=== PATIENT | female | born 1980 | race Caucasian/White ===

== ENCOUNTER 2016-08-27 14:06 | Inpatient (IN) | payer OTHER ==
[~2016-08-27] VITALS: Ht 167.6 cm; Wt 75.3 kg
[~2016-08-27 14:06] MED LIST: ALBUTEROL0.09 MG/A2 INH; AUGMENTIN 500 M1 TAB PO; AUGMENTIN 875 M1 TAB PO; BACTRIM DS 8001 TA1 PO; BIAXIN500 MG PO; CLARITIN10 MG PO; COMBIVENT1 ARO IH; FLEXERIL10 MG PO; KEFLEX500 MG PO; KEPPRA500 MG PO; MEDROL DOSEPAK4 MG PO; METHADONE40 MG PO; MOTRIN800 MG PO; NEURONTIN600 MG PO; NEURONTIN800 MG PO; NORCO 325 MG-51 TAB PO; PEN-V500 MG PO; PERIDEX 480 ML480 ML PO; PROAIR HFA0.09 MG/AC IH; PROVENTIL0.09 MG/AC IH; PYRIDIUM200 M1 PO; ROBITUSSIN AC 110 ML PO; TESSALON PERLE200 MG PO; TRAMADOL HCL50 MG PO; ZITHROMAX Z PA250 MG PO; [UNRECOGNIZED DRUG - OTHER] PO
[2016-08-27 14:43] VITALS: BP 120/86
[2016-08-27 15:05] LABS: BILIRUBIN 1+ (NEGATIVE); BLOOD 3+ (NEGATIVE); CLARITY SL CLOUDY (CLEAR); COLOR YELLOW (YELLOW); GLUCOSE NEGATIVE (NEGATIVE); KETONE 3+ (NEGATIVE); LEUKO ESTERASE NEGATIVE (NEGATIVE); NITRITE NEGATIVE (NEGATIVE); PH 7.5 (5.0-9.0); PROTEIN 1+ (NEGATIVE); SPECIFIC GRAVITY 1.015 (1.005-1.030)
[2016-08-27 15:11] LABS: BACTERIA TRACE; MUCOUS 1+; RBC 31-40 rbc/hpf (0-2); WBC 0-2 wbc/hpf (0-5)
[2016-08-27 15:12] LABS: URINE REFLEX COMMENT YES (NO)
[2016-08-27 15:33] LABS: BASO % 0.3 % (0.0-1.0); EOS % 0.1 % (1.0-4.0); HEMATOCRIT 46.4 % (37.0-47.0); HEMOGLOBIN 16.2 g/dl (12.0-16.0); LYMPH # 0.9 10*3/uL (1.3-4.4); LYMPH % 9.3 % (27.0-41.0); MEAN CELL VOLUME 95.7 fl (81.0-99.0); MEAN CORPUSCULAR HGB 33.4 pg (27.0-31.0); MEAN CORPUSCULAR HGB CONC 34.9 g/dl (33.0-37.0); MEAN PLATELET VOLUME 9.5 fl (9.6-12.3); MONO # 0.4 10*3/uL (0.1-1.0); MONO % 4.1 % (3.0-9.0); NEUT # 8.6 10*3/uL (2.3-7.9); NEUT % 85.9 % (47.0-73.0); PLATELET COUNT AUTOMATED 252 10*3/uL (130-400); RED BLOOD COUNT 4.85 10*6/uL (4.10-5.10); RED CELL DISTRI WIDTH 14.2 % (0-14.5)
[2016-08-27 15:49] LABS: ALBUMIN 4.2 gm/dl (3.1-4.5); ALKALINE PHOSPHATASE 65 U/L (45-117); BUN 8 mg/dl (7-24); CARBON DIOXIDE 28 mmol/L (21-32); CHLORIDE 98 mmol/L (98-107); EST GLOM FILT AFRICAN AMERICAN > 60 ml/min; GLUCOSE 138 mg/dL (65-99); POTASSIUM 3.6 mmol/L (3.5-5.1); SGOT/AST 118 IU/L (3-35); SGPT/ALT 163 U/L (12-78); SODIUM 136 mmol/L (136-145); TOTAL PROTEIN 8.2 gm/dL (6.4-8.2)
[2016-08-27 16:00] VITALS: BP 120/78
[2016-08-27] MEDS ORDERED: METHADONE HCL40 M2 PO (18:57)
[2016-08-27 20:00] VITALS: BP 124/74
[2016-08-28] VITALS: BP 137/75
[2016-08-28 06:15] LABS: BASO % 0.2 % (0.0-1.0); EOS # 0.1 10*3/uL (0.0-0.4); EOS % 1.2 % (1.0-4.0); HEMATOCRIT 41.7 % (37.0-47.0); HEMOGLOBIN 14.5 g/dl (12.0-16.0); LYMPH # 1.7 10*3/uL (1.3-4.4); LYMPH % 20.5 % (27.0-41.0); MEAN CELL VOLUME 98.3 fl (81.0-99.0); MEAN CORPUSCULAR HGB 34.2 pg (27.0-31.0); MEAN CORPUSCULAR HGB CONC 34.8 g/dl (33.0-37.0); MEAN PLATELET VOLUME 9.4 fl (9.6-12.3); MONO # 0.6 10*3/uL (0.1-1.0); MONO % 6.6 % (3.0-9.0); NEUT % 71.1 % (47.0-73.0); PLATELET COUNT AUTOMATED 216 10*3/uL (130-400); RED BLOOD COUNT 4.24 10*6/uL (4.10-5.10); RED CELL DISTRI WIDTH 14.4 % (0-14.5); WHITE BLOOD COUNT 8.4 10*3/uL (4.8-10.8)
[2016-08-28 06:35] LABS: HEMOGLOBIN A1c 5.8 % (4.8-5.6)
[2016-08-28 06:51] LABS: ALBUMIN 3.4 gm/dl (3.1-4.5); ALKALINE PHOSPHATASE 52 U/L (45-117); BILIRUBIN, TOTAL 0.7 mg/dl (0.2-1.0); BUN 6 mg/dl (7-24); CARBON DIOXIDE 30 mmol/L (21-32); CHLORIDE 103 mmol/L (98-107); CHOLESTEROL 221 mg/dL (<200); EST GLOM FILT AFRICAN AMERICAN > 60 ml/min; FREE T4 0.82 ng/dl (0.76-1.46); GLUCOSE 107 mg/dL (65-99); HDL CHOLESTEROL 43 mg/dl (40-60); LDL CHOLESTEROL 140 mg/dL (9-159); MAGNESIUM 1.9 mg/dL (1.5-2.1); PHOSPHOROUS 2.7 mg/dL (2.5-4.9); POTASSIUM 3.1 mmol/L (3.5-5.1); SGOT/AST 52 IU/L (3-35); SGPT/ALT 103 U/L (12-78); SODIUM 142 mmol/L (136-145); TOTAL PROTEIN 6.7 gm/dL (6.4-8.2); TRIGLYCERIDES 192 mg/dl (<150); VLDL CHOLESTEROL 38 mg/dL (6-40)
[2016-08-28 06:59] LABS: INTERNATIONAL NORM RATIO 1.1 (2.0-3.5); PROTHROMBIN TIME 11.4 SECONDS (9.0-12.4)
[2016-08-28 07:00] LABS: VITAMIN D, 25-HYDROXY 8.1 ng/mL (30-100)
[2016-08-28 07:01] LABS: FOLIC ACID 7.15 ng/mL (>5.38)
[2016-08-28 08:00] VITALS: BP 116/66
[2016-08-28 12:00] VITALS: BP 124/67
[2016-08-28 16:00] VITALS: BP 124/68
[2016-08-28 20:00] VITALS: BP 128/78
[2016-08-29 00:04] VITALS: BP 116/65
[2016-08-29 06:32] LABS: BASO % 0.4 % (0.0-1.0); EOS # 0.2 10*3/uL (0.0-0.4); HEMATOCRIT 39.4 % (37.0-47.0); HEMOGLOBIN 13.4 g/dl (12.0-16.0); LYMPH % 28.1 % (27.0-41.0); MEAN CELL VOLUME 100.8 fl (81.0-99.0); MEAN CORPUSCULAR HGB 34.3 pg (27.0-31.0); MEAN PLATELET VOLUME 9.6 fl (9.6-12.3); MONO # 0.6 10*3/uL (0.1-1.0); MONO % 7.6 % (3.0-9.0); NEUT # 4.4 10*3/uL (2.3-7.9); NEUT % 60.5 % (47.0-73.0); PLATELET COUNT AUTOMATED 206 10*3/uL (130-400); RED BLOOD COUNT 3.91 10*6/uL (4.10-5.10); RED CELL DISTRI WIDTH 14.6 % (0-14.5); WHITE BLOOD COUNT 7.3 10*3/uL (4.8-10.8)
[2016-08-29 06:52] LABS: ALBUMIN 3.2 gm/dl (3.1-4.5); ALKALINE PHOSPHATASE 54 U/L (45-117); BILIRUBIN, TOTAL 0.7 mg/dl (0.2-1.0); BUN 4 mg/dl (7-24); CARBON DIOXIDE 25 mmol/L (21-32); CHLORIDE 108 mmol/L (98-107); EST GLOM FILT AFRICAN AMERICAN > 60 ml/min; GLUCOSE 101 mg/dL (65-99); MAGNESIUM 1.9 mg/dL (1.5-2.1); PHOSPHOROUS 2.6 mg/dL (2.5-4.9); POTASSIUM 3.6 mmol/L (3.5-5.1); SGOT/AST 39 IU/L (3-35); SGPT/ALT 77 U/L (12-78); SODIUM 140 mmol/L (136-145); TOTAL PROTEIN 6.4 gm/dL (6.4-8.2)
[2016-08-29 08:00] VITALS: BP 120/78
[2016-08-29 12:00] VITALS: BP 106/77
[2016-08-29 16:00] VITALS: BP 108/56
[2016-08-29 20:00] VITALS: BP 125/82
[2016-08-30] VITALS: BP 108/67
[2016-08-30 06:41] LABS: BUN 3 mg/dl (7-24); CARBON DIOXIDE 25 mmol/L (21-32); CHLORIDE 110 mmol/L (98-107); EST GLOM FILT AFRICAN AMERICAN > 60 ml/min; GLUCOSE 110 mg/dL (65-99); POTASSIUM 3.3 mmol/L (3.5-5.1); SODIUM 143 mmol/L (136-145)
[2016-08-30 08:00] VITALS: BP 118/84
[2016-08-30 12:00] VITALS: BP 124/84
[2016-08-30 16:00] VITALS: BP 128/76
[2016-08-30 20:00] VITALS: BP 144/93
[2016-08-31] VITALS: BP 120/65
[2016-08-31 06:44] LABS: BASO # 0.1 10*3/uL (0.0-0.1); BASO % 0.7 % (0.0-1.0); EOS # 0.2 10*3/uL (0.0-0.4); EOS % 2.9 % (1.0-4.0); HEMATOCRIT 38.7 % (37.0-47.0); HEMOGLOBIN 13.3 g/dl (12.0-16.0); IG # 0.1 10*3/uL (0.0-0.1); LYMPH # 1.9 10*3/uL (1.3-4.4); LYMPH % 25.3 % (27.0-41.0); MEAN CORPUSCULAR HGB CONC 34.4 g/dl (33.0-37.0); MEAN PLATELET VOLUME 9.8 fl (9.6-12.3); MONO # 0.5 10*3/uL (0.1-1.0); MONO % 6.5 % (3.0-9.0); NEUT # 4.7 10*3/uL (2.3-7.9); NEUT % 63.9 % (47.0-73.0); PLATELET COUNT AUTOMATED 252 10*3/uL (130-400); RED BLOOD COUNT 3.91 10*6/uL (4.10-5.10); RED CELL DISTRI WIDTH 14.4 % (0-14.5); WHITE BLOOD COUNT 7.3 10*3/uL (4.8-10.8)
[2016-08-31 06:47] LABS: EST GLOM FILT AFRICAN AMERICAN > 60 ml/min
[2016-08-31 08:00] VITALS: BP 140/78
[2016-08-31 08:12] LABS: HEPATITIS C VIRUS ANTIBODY >11.0 s/co (0.0-0.9)
[2016-08-31 12:00] VITALS: BP 121/67
[2016-08-31 16:00] VITALS: BP 136/83
[2016-08-31] MEDS ORDERED: PANTOPRAZOLE SO40 MG PO (18:31)
[2016-08-31 20:00] VITALS: BP 146/97
[2016-09-01] VITALS: BP 109/66
[2016-09-01 08:00] VITALS: BP 114/76
[2016-09-01] MEDS ORDERED: Zofran4 MG PO (08:03)
== END 2016-09-01 09:50 | disposition home or self-care (01) | DRG 439 ==
LOC: ED 14:06 → EDHOLD 17:48 → 5E 17:48
PROVIDERS: Internal Medicine; Internal Medicine Hospice and Palliative Medicine; Nurse Practitioner Family
DX: K85.90 Acute pancreatitis without necrosis or infection, unspecified (principal); D68.0 Von Willebrand disease; E44.0 Moderate protein-calorie malnutrition; D75.1 Secondary polycythemia; E87.6 Hypokalemia; E55.9 Vitamin D deficiency, unspecified; E78.1 Pure hyperglyceridemia; G89.29 Other chronic pain; R74.0 Nonspecific elevation of levels of transaminase and lactic acid dehydrogenase [LDH]; F17.210 Nicotine dependence, cigarettes, uncomplicated; R73.9 Hyperglycemia, unspecified; Z71.6 Tobacco abuse counseling; Z82.49 Family history of ischemic heart disease and other diseases of the circulatory system; Z88.6 Allergy status to analgesic agent; Z79.899 Other long term (current) drug therapy; Z68.29 Body mass index [BMI] 29.0-29.9, adult

== ENCOUNTER 2017-10-03 16:29 | Emergency (ER) | payer OTHER ==
[~2017-10-03] VITALS: Ht 167.6 cm; Wt 77.1 kg
[~2017-10-03 16:29] MED LIST changes: +METHADONE HCL40 M2 PO; +PANTOPRAZOLE SO40 MG PO; +Zofran4 MG PO
[2017-10-03 16:34] VITALS: BP 133/88
[2017-10-03 17:19] LABS: BILIRUBIN NEGATIVE (NEGATIVE); BLOOD 2+ (NEGATIVE); CLARITY CLEAR (CLEAR); COLOR YELLOW (YELLOW); GLUCOSE NEGATIVE (NEGATIVE); KETONE NEGATIVE (NEGATIVE); LEUKO ESTERASE NEGATIVE (NEGATIVE); NITRITE NEGATIVE (NEGATIVE); PH 5.5 (5.0-9.0); SPECIFIC GRAVITY >= 1.030 (1.005-1.030); UROBILINOGEN 0.2 E.U./dl (0.2-1.0)
[2017-10-03 17:25] LABS: BACTERIA 1+; MUCOUS TRACE; WBC 0-2 wbc/hpf (0-5)
[2017-10-03 17:44] LABS: BASO # 0.1 10*3/uL (0.0-0.1); BASO % 0.7 % (0.0-1.0); EOS # 0.3 10*3/uL (0.0-0.4); EOS % 2.5 % (1.0-4.0); HEMATOCRIT 45.6 % (37.0-47.0); HEMOGLOBIN 15.5 g/dl (12.0-16.0); LYMPH # 2.6 10*3/uL (1.3-4.4); LYMPH % 25.5 % (27.0-41.0); MEAN CELL VOLUME 98.5 fl (81.0-99.0); MEAN CORPUSCULAR HGB 33.5 pg (27.0-31.0); MEAN PLATELET VOLUME 9.4 fl (9.6-12.3); MONO # 0.6 10*3/uL (0.1-1.0); MONO % 5.6 % (3.0-9.0); NEUT # 6.6 10*3/uL (2.3-7.9); NEUT % 65.3 % (47.0-73.0); PLATELET COUNT AUTOMATED 481 10*3/uL (130-400); RED BLOOD COUNT 4.63 10*6/uL (4.10-5.10); RED CELL DISTRI WIDTH 14.7 % (0-14.5); WHITE BLOOD COUNT 10.2 10*3/uL (4.8-10.8)
[2017-10-03 17:55] LABS: ACT PARTIAL THROMBO TIME 25.9 SECONDS (20.8-31.5)
[2017-10-03 18:00] LABS: ALBUMIN 3.8 gm/dl (3.1-4.5); ALKALINE PHOSPHATASE 47 U/L (45-117); BUN 14 mg/dl (7-24); CHLORIDE 104 mmol/L (98-107); CREATININE 0.94 mg/dL (0.55-1.02); LIPASE 97 U/L (73-393); POTASSIUM 3.5 mmol/L (3.5-5.1); SGOT/AST 42 IU/L (3-35); SGPT/ALT 50 U/L (12-78); SODIUM 138 mmol/L (136-145); TOTAL PROTEIN 7.5 gm/dL (6.4-8.2)
[2017-10-03 18:02] LABS: ETHYL ALCOHOL < 3.0 mg/dl (<3)
[2017-10-03 18:39] LABS: URINE AMPHETAMINES < 1000 (1000ng/ml); URINE BARBITURATES < 200 (200ng/ml); URINE BENZODIAZEPINES < 200 (200ng/ml); URINE CANNABINOIDS (THC) < 50 (50ng/ml); URINE COCAINE < 300 (300ng/ml); URINE METHADONE < 300 (300ng/ml); URINE OPIATES > 300 (300ng/ml); URINE PHENCYCLIDINE < 25 (25ng/ml)
[2017-10-03] MEDS ORDERED: OMEPRAZOLE MAGN20 MG PO (19:37)
== END 2017-10-03 19:43 | disposition home or self-care (01) ==
LOC: ED 16:29
PROVIDERS: Emergency Medicine
DX: R10.13 Epigastric pain (principal); R10.12 Left upper quadrant pain; F17.200 Nicotine dependence, unspecified, uncomplicated; G89.4 Chronic pain syndrome; Z90.89 Acquired absence of other organs; Z79.899 Other long term (current) drug therapy; Z88.6 Allergy status to analgesic agent

== ENCOUNTER → 2017-11-03 | Outpatient (CLI) | payer OTHER ==
[~2017-11-03] MED LIST changes: +OMEPRAZOLE MAGN20 MG PO
[2017-11-03 12:03] LABS: HEMATOCRIT 45.9 % (37.0-47.0); HEMOGLOBIN 15.6 g/dl (12.0-16.0); MEAN CELL VOLUME 100.7 fl (81.0-99.0); MEAN CORPUSCULAR HGB 34.2 pg (27.0-31.0); MEAN PLATELET VOLUME 9.7 fl (9.6-12.3); RED BLOOD COUNT 4.56 10*6/uL (4.10-5.10); RED CELL DISTRI WIDTH 14.6 % (0-14.5); WHITE BLOOD COUNT 7.3 10*3/uL (4.8-10.8)
[2017-11-03 12:31] LABS: ALBUMIN 3.9 gm/dl (3.1-4.5); ALKALINE PHOSPHATASE 49 U/L (45-117); BUN 8 mg/dl (7-24); CHLORIDE 106 mmol/L (98-107); CHOLESTEROL 259 mg/dL (<200); CREATININE 0.78 mg/dL (0.55-1.02); FREE T4 0.82 ng/dl (0.76-1.46); HDL CHOLESTEROL 52 mg/dl (40-60); LDL CHOLESTEROL 159 mg/dL (9-159); POTASSIUM 4.2 mmol/L (3.5-5.1); SGOT/AST 88 IU/L (3-35); SGPT/ALT 68 U/L (12-78); SODIUM 140 mmol/L (136-145); TOTAL PROTEIN 7.9 gm/dL (6.4-8.2); TRIGLYCERIDES 238 mg/dl (<150); VLDL CHOLESTEROL 48 mg/dL (6-40)
[2017-11-04 08:14] LABS: RHEUMATOID ARTHRITIS FACTOR 12.2 IU/mL (0.0-13.9)
[2017-11-04 11:03] LABS: HEPATITIS B SURFACE AG Negative (Negative)
[2017-11-05 00:07] LABS: CCP ANTIBODIES IGG/IGA 5 units (0-19)
[2017-11-08 09:37] LABS: HEPATITIS C VIRUS ANTIBODY 10.8 s/co (0.0-0.9)
== END | disposition home or self-care (01) ==
LOC: MAMMO 09:30 → LAB 10:06
PROVIDERS: Family Medicine
DX: K21.9 Gastro-esophageal reflux disease without esophagitis (principal); R51 Headache; E78.00 Pure hypercholesterolemia, unspecified; E55.9 Vitamin D deficiency, unspecified; M79.1 Myalgia; N63.10 Unspecified lump in the right breast, unspecified quadrant; M25.50 Pain in unspecified joint

== ENCOUNTER → 2017-11-11 | Outpatient (CLI) | payer OTHER ==
[2017-11-14 15:07] LABS: HEPATITIS C QUANTITATION HCV Not Detected IU/mL (.)
== END | disposition home or self-care (01) ==
LOC: LAB 14:18
PROVIDERS: Family Medicine
DX: B19.20 Unspecified viral hepatitis C without hepatic coma (principal)

== ENCOUNTER 2018-12-08 12:44 | Inpatient (IN) | payer OTHER ==
[~2018-12-08] VITALS: Ht 167.6 cm; Wt 81.7 kg
--- NOTE | ~2018-12-08 | EKG ---
[place], [place] ELECTROCARDIOGRAM REPORT NAME: JOLENE MEZA UNIT #: [id number] ROOM: 519 DOCTOR: JORGE DRAFT REPORT BIRTHDATE: [birth year] [facility] Test Date: 2018-12-08 Test Time: 13:55:38 Pat Name: JOLENE MEZA Department: Room: 519 Gender: F Statement Services Representative: Mirella Ribera : 1980 Requested By: NEVAEH GANT Order Number: [id number] Reading MD: Itzel Hare MD Measurements Intervals [place] Rate: 71 P: 47 MT: 147 QRS: 37 QRSD: 88 T: 1 QT: 391 QTc: 425 Interpretive Statements Sinus rhythm Abnormal R-wave progression, late transition Borderline T wave abnormalities Compared to ECG 12/18/2017 22:51:20 T-wave abnormality now present Sinus tachycardia no longer present Atrial abnormality no longer present Electronically Signed On 12-09-2018 9:19:37 PDT by Itzel Hare MD CM:EKGRPT:ELECTROCARDIOGRAM REPORT [id number] NEVAEH POLK DRAFT REPORT NEVAEH GANT DO
[~2018-12-08 12:44] MED LIST changes: +AMINOPHYLLIN200 MG PO; +NORCO 5-325 TA1 EACH PO; +Orphenadrine C100 MG PO; +PREDNISONE10 MG PO
[2018-12-08 12:45] VITALS: BP 138/90
[2018-12-08 14:12] LABS: BASO # 0.1 10*3/uL (0.0-0.1); BASO % 0.9 % (0.0-1.0); EOS # 0.2 10*3/uL (0.0-0.4); HEMATOCRIT 46.1 % (37.0-47.0); HEMOGLOBIN 15.6 g/dl (12.0-16.0); LYMPH # 1.9 10*3/uL (1.3-4.4); LYMPH % 21.4 % (27.0-41.0); MEAN CELL VOLUME 103.1 fl (81.0-99.0); MEAN CORPUSCULAR HGB 34.9 pg (27.0-31.0); MEAN CORPUSCULAR HGB CONC 33.8 g/dl (33.0-37.0); MONO # 0.6 10*3/uL (0.1-1.0); MONO % 6.3 % (3.0-9.0); NEUT # 6.2 10*3/uL (2.3-7.9); NEUT % 68.8 % (47.0-73.0); PLATELET COUNT AUTOMATED 365 10*3/uL (130-400); RED BLOOD COUNT 4.47 10*6/uL (4.10-5.10); RED CELL DISTRI WIDTH 15.9 % (0-14.5); WHITE BLOOD COUNT 8.9 10*3/uL (4.8-10.8)
[2018-12-08 14:29] LABS: ALBUMIN 3.5 gm/dl (3.1-4.5); ALKALINE PHOSPHATASE 58 U/L (45-117); BUN 8 mg/dl (7-24); CHLORIDE 103 mmol/L (98-107); CREATININE 0.63 mg/dL (0.55-1.02); POTASSIUM 3.8 mmol/L (3.5-5.1); SGOT/AST 122 IU/L (3-35); SGPT/ALT 91 U/L (12-78); SODIUM 137 mmol/L (136-145); TOTAL PROTEIN 7.5 gm/dL (6.4-8.2)
[2018-12-08 14:35] VITALS: BP 140/96
--- NOTE | 2018-12-08 14:35 | NUR ---
A 38, admitted to , under the services of BLANKA Esposito DO with a diagnosis of ALCOHOL DEPENDENCE. Chief complaint is SUBSTANCE ABUSE WITHDRAWAL. Patient arrived via from ER. Monitor applied. Initial assessment completed. Vital signs taken and recorded. BLANKA ESPOSITO DO notified of admission to the unit. Orders received. See assessment for past medical history, medications and allergies. Patient and/or family oriented to unit. [facility]. Clothing/patient valuable form completed. CITLALI BERRY
[2018-12-08 14:37] LABS: BETA-HCG, QUANT < 1.0 mIU/mL (1-3); ETHYL ALCOHOL < 3.0 mg/dl (<3)
--- NOTE | 2018-12-08 14:48 | NUR ---
PATIENT WAS SEEN IN [place] OFFICE. PATIENT MEETS [facility]. CIWA=22. PATIENT IS UNDECIDED ON HER AFTERCARE PLAN. [place] STAFF PROVIDED PATIENT WITH REFERRAL OPTIONS. [place] STAFF WILL FOLLOW BACK UP WITH PATIENT. [place] STAFF WILL ALSO PROVIDE PATIENT WITH A LIST OF AA MEETINGS IN HER AREA, ALONG WITH OTHER SELF-HELP RESOURCES. SENA BRITO B.A. EXTENSION FORESTER
[2018-12-08] MEDS ORDERED: TRINTELLIX10 MG PO (14:56)
[2018-12-08] MEDS ORDERED: GABAPENTIN800 MG PO (14:57)
[2018-12-08 15:05] LABS: BILIRUBIN NEGATIVE (NEGATIVE); BLOOD 2+ (NEGATIVE); CLARITY SL CLOUDY (CLEAR); COLOR YELLOW (YELLOW); GLUCOSE NEGATIVE (NEGATIVE); KETONE NEGATIVE (NEGATIVE); LEUKO ESTERASE 1+ (NEGATIVE); NITRITE POSITIVE (NEGATIVE)
[2018-12-08 15:12] LABS: BACTERIA 4+; RBC 31-40 rbc/hpf (0-2); WBC TNTC wbc/hpf (0-5)
[2018-12-08 15:14] LABS: URINE AMPHETAMINES < 1000 (1000ng/ml); URINE BARBITURATES < 200 (200ng/ml); URINE BENZODIAZEPINES < 200 (200ng/ml); URINE CANNABINOIDS (THC) < 50 (50ng/ml); URINE COCAINE < 300 (300ng/ml); URINE METHADONE < 300 (300ng/ml); URINE OPIATES < 300 (300ng/ml)
[2018-12-08 15:19] LABS: URINE PHENCYCLIDINE < 25 (25ng/ml)
--- NOTE | 2018-12-08 15:43 | NUR ---
PATIENT REQUESTING MEDICATION FOR ANXIETY. VISTARIL ADMINISTERED PRESCRIBED. WILL MONITOR FOR EFFECTIVENESS.
[2018-12-08 16:00] VITALS: BP 140/96
--- NOTE | 2018-12-08 16:43 | NUR ---
PATIENT STATES THAT VISTARIL WAS A LITTLE AFFECTIVE. NO VISUAL SIGNS OF WITHDRAWAL NOTED. WILL MONITOR.
--- NOTE | 2018-12-08 18:03 | NUR ---
PATIENT C/O MUSCLE ACHES. ROBAXIN ADMINISTERED PRESCRIBED. WILL MONITOR FOR EFFECTIVENESS.
[2018-12-08 20:00] VITALS: BP 114/66
--- NOTE | 2018-12-08 21:10 | NUR ---
MEDICATED WITH VISTARIL FOR ANXIETY & TRAZODONE FOR INSOMNIA.
--- NOTE | 2018-12-08 23:04 | NUR ---
PATIENT RESTING IN BED WITH EYES CLOSED. RESPS EASY AND REGULAR. BED IN LOWEST POSITION, CALL LIGHT IN REACH
[2018-12-09] VITALS: BP 112/66
--- NOTE | 2018-12-09 05:31 | NUR ---
MEDICATED WITH PRN ATIVAN PER ORDER FOR C/O ANXIOUSNESS. WILL MONITOR
--- NOTE | 2018-12-09 08:30 | NUR ---
Patient resting. Responding to scheduled medications with fewer complaints of anxiety. Call light in reach. will monitor
[2018-12-09 12:00] VITALS: BP 122/82
[2018-12-09 16:00] VITALS: BP 109/70
[2018-12-09 20:00] VITALS: BP 128/71
--- NOTE | 2018-12-09 23:00 | NUR ---
PT STATING THAT SHE IS SEEING BLUE OTTERS IN THE ROOM. SHE STATES SHE KNOWS IT IS NOT REAL. C/O OF FEELING ANXIOUS VOICED AT THIS TIME. PRN ATIVAN GIVEN AT THIS TIME. WILL MONITOR FOR EFFECTIVENESS.
[2018-12-10] VITALS: BP 119/77
--- NOTE | 2018-12-10 00:30 | NUR ---
PT ASLEEP. ATIVAN CONSIDERED EFFECTIVE. WILL CONTINUE TO MONITOR.
--- NOTE | 2018-12-10 05:31 | NUR ---
PT STATES "THERE IS FENCE WITH SPIDER WEBS AND FEATHERS ON IT, IN HER ROOM" STATES SHE KNOWS IT IS NOT THERE. DR. MAXWELL INFORMED AND CIWA SCALE SCORE OF 18 OBTAINED. PRN ATIVAN GIVEN AT THIS TIME. WILL MONITOR FOR EFFECTIVENESS.
[2018-12-10 08:00] VITALS: BP 108/71
--- NOTE | 2018-12-10 08:12 | NUR ---
Patient resting quietly. Respirations easy and regular.Pt states she had an "off night" because she was hallucating and knows she was. Pt A&Ox3 at present. Medicated with bentyl for c/o stomach cramps, robaxin for c/o muscle aches and vistril for c/o anxiety per pt request. Vital signs stable. No overt distress. DARIUS PAUL R
[2018-12-10 12:00] VITALS: BP 129/84
[2018-12-10 16:00] VITALS: BP 145/83
--- NOTE | 2018-12-10 16:44 | NUR ---
DR JOHNSON NOTIFIED THAT PT ACCIDENTLLY PULLED OUT IV SITE. MULT NURSES ATTEMPTED WITH NO SUCCESS. ORDERS RECEIVED FOR ATIVAN PO SAME DOSE AND TIME FRAME UNTIL IV RESTABLISHED.
--- NOTE | 2018-12-10 16:54 | NUR ---
PT FOUND OUTSIDE BY STAFF SHE STATES SHE WANTED TO HAVE A CIGARETTE. PT EDUCATED ON [facility] RULES OF BEING DISCHARGED IF FOUND OF UNIT. PT STATES SHE WAS TOLD SHE COULD LONG SHE NOTIFIED SOMEONE. PT REEDUCATED ON RULES. PT ESCORTED BACK TO ROOM AND DR JOHNSON NOTIFIED, HE STATES NOT TO DISCHARGE PT AT THIS TIME SHE IS CLOSE TO "DT'S". DR JOHNSON IN TO SEE THE PT.
--- NOTE | 2018-12-10 17:28 | NUR ---
ACCUCATH PLACED IN RIGHT UPPER ARM.
--- NOTE | 2018-12-10 17:29 | NUR ---
PO ATIVAN DC'D PER ORDERS.
[2018-12-10 20:00] VITALS: BP 146/105; BP 146/90
--- NOTE | 2018-12-10 20:00 | NUR ---
ANXIOUS. AMBULATING HALLWAY. ATTEMPTED TO REDIRECT PATIENT. WILL MONITOR
--- NOTE | 2018-12-10 20:00 | NUR ---
Patient displaying withdrawal symptoms, including: irritability, anxiousness, restlessness and agitation. Scheduled/PRN medications provided, SEE EMAR. Will continue to monitor medication effectiveness.
--- NOTE | 2018-12-10 20:29 | NUR ---
24 HR chart check completed.
--- NOTE | 2018-12-10 21:00 | NUR ---
REMAINS ANXIOUS, AMBULATING HALLWAY. REMINDED NOT TO LEAVE FLOOR.
--- NOTE | 2018-12-10 23:00 | NUR ---
Patient resting. Responding to scheduled medications with fewer complaints of pain and anxiety.
[2018-12-11] VITALS: BP 137/74
--- NOTE | 2018-12-11 00:30 | NUR ---
AWAKENED FOR VITALS. AMBULATING HALLWAY IN DAZE. ENCOURAGED TO RETURN TO BED. CALL LIGHT WITHIN REACH
--- NOTE | 2018-12-11 02:30 | NUR ---
Patient SLEEPING. Responding to scheduled medications with fewer complaints of pain and anxiety.
--- NOTE | 2018-12-11 06:40 | NUR ---
Patient resting. Responding to scheduled medications with fewer complaints of pain and anxiety.
--- NOTE | 2018-12-11 07:25 | NUR ---
PATIENT WONDERING IN HALLWAY IN A DAZE. AT NURSING STATION ASKING IF SHE IS GOING TO BE DISCHARGED TODAY. PATIENT STATES SHE WANTS TO GO HOME. DICUSSED WITH PATRICIA HER LAST DOSE OF LIBRIUM IS SCHEDULED FOR 1400 TODAY AND THE DOCTORS WOULD BE AROUND TO ROUND WITHIN THE NEXT COUPLE HOURS. PATIENT HEADED BACK INTO ROOM.
[2018-12-11 08:00] VITALS: BP 110/70
--- NOTE | 2018-12-11 08:18 | NUR ---
PATIENT VERY AGIATED AND IRRITABLE. PATIENT STATES SHE WANTS TO GO OUT AND SMOKE JUST ONE CIGARETTE. THIS NURSE REMINDED PATIENT OF THE SMOKING POLICY. PATIENT CONTINUES TO STATE SHE WILL JUST GO SMOKE ONE OUTSIDE. OFFERED TO GIVE NICOTINE PATCH OR GUM INSTEAD OF HER INHALER. PATIENT DENIES WANTING TO TRY ANYTHING ELSE. PATIENT CIGARETTES LOCKED UP IN ROOM. PATIENT ALSO REMOVED HEART MONITOR. STATES "THIS IS DOING NOTHING FOR ME" THIS NURSE EXPLAINED TO PATIENT THE PURPOSE OF THE MONITOR. PATIENT ALLOWED THIS NURSE TO PUT HEART MONITOR BACK ON. PATIENT MEDICATED WITH IV ATIVAN AT THIS TIME. WILL CHECK EFFECTIVENESS.
--- NOTE | 2018-12-11 09:00 | NUR ---
PATIENT SLEEPING ATIVAN EFFECTIVE
--- NOTE | 2018-12-11 10:56 | NUR ---
PATIENT CONTINUING TO TAKE OFF MONITOR. NOTIFIED DR. KINNEAR. VASQUES TO LEAVE MONITOR OFF. WILL CONTINUE TO MONITOR.
--- NOTE | 2018-12-11 11:24 | NUR ---
[place] STAFF SPOKE WITH PATIENT. PATIENT REPORTS THAT SHE IS STILL UNDECIDED ON WHAT SHE WANTS TO DO. [place] STAFF DISCUSSED REFERRAL OPTIONS WITH HER AND SHE STATED THAT SHE WOULD PREFER TO DISCUSS HER OPTIONS WITH HER FAMILY ONCE SHE IS DISCHARGED. [place] STAFF WILLL PROVIDE PATIENT WITH A LIST OF REFFERALS OPTIONS. SENA BRITO B.A. EXPLOSIVE ORDNANCE TECHNICIAN
--- NOTE | 2018-12-11 11:54 | NUR ---
PATIENT MEDICATED WITH PO VISTARIL FOR ANXIETY. WILL CHECK EFFECTIVENESS.
[2018-12-11 12:00] VITALS: BP 109/64
--- NOTE | 2018-12-11 14:20 | NUR ---
SPOKE WITH DR. CHRISTIAN ABOUT DOMINICKT WANTING IV ATIVAN BEFORE SHE LEAVES. STATES NOT TO GIVE IT. SPOKE WITH NURSING PROGRAM STRATEGIST SHE ALSO STATES NOT TO GIVE IT.
--- NOTE | 2018-12-11 14:30 | NUR ---
PATIENT REMOVED IV HERSELF. PATIENT STATES SHE WANTS HER CIGARETTES SHE IS LEAVING ALTHOUGH HER RIDE WONT BE HERE FOR ANOTHER HOUR. THIS NURSE STATED SHE IS WELCOME TO STAY IN THE ROOM UNTIL HER RIDE GETS HERE. SHE JUST CANNOT SMOKE. PATIENT REFUSES AND DEMANDS HER CIGARETTES. PATIENT OFF FLOOR AT THIS TIME WITH HER BELONGINGS.
--- NOTE | 2018-12-11 14:34 | NUR ---
Discharge instructions reviewed with patient/family. Patient receptive and verbalizes understanding. Follow-up care arranged. Written instructions given to patient/family. DARIUS FLORES
== END 2018-12-11 14:34 | disposition home or self-care (01) | DRG 690 ==
LOC: ED 12:44 → 5E 13:47 → EDHOLD 13:47 → 5E 13:53
PROVIDERS: Emergency Medicine; ADMIT Internal Medicine
DX: N39.0 Urinary tract infection, site not specified (principal); F10.239 Alcohol dependence with withdrawal, unspecified; D68.0 Von Willebrand disease; G89.29 Other chronic pain; R74.0 Nonspecific elevation of levels of transaminase and lactic acid dehydrogenase [LDH]; R73.9 Hyperglycemia, unspecified; F17.210 Nicotine dependence, cigarettes, uncomplicated; R44.1 Visual hallucinations; Z71.6 Tobacco abuse counseling; Z88.8 Allergy status to other drugs, medicaments and biological substances; Z87.440 Personal history of urinary (tract) infections; Z82.49 Family history of ischemic heart disease and other diseases of the circulatory system; Z82.5 Family history of asthma and other chronic lower respiratory diseases; Z80.6 Family history of leukemia; Z79.899 Other long term (current) drug therapy

== ENCOUNTER 2018-12-16 23:51 | Emergency (ER) | payer OTHER ==
[~2018-12-16] VITALS: Ht 167.6 cm; Wt 87.1 kg
--- NOTE | ~2018-12-16 | EKG ---
[place], [place] ELECTROCARDIOGRAM REPORT NAME: JOLENE MEZA UNIT #: [id number] ROOM: DOCTOR: EPIPHANY DRAFT REPORT BIRTHDATE: [birth year] [facility] Test Date: 2018-12-17 Test Time: 00:20:18 Pat Name: JOLENE MEZA Department: Room: Gender: F Product Scientist: Maite Sotrm : 1980 Requested By: BRADLEY FONTAINE Order Number: [id number] Reading MD: Kam Fuentes Measurements Intervals [place] Rate: 92 P: 69 SC: 161 QRS: 65 QRSD: 92 T: 7 QT: 381 QTc: 472 Interpretive Statements Sinus rhythm Probable left atrial enlargement Low voltage, extremity leads Abnormal R-wave progression, late transition Baseline wander in lead(s) I Compared to ECG 12/08/2018 13:55:38 Low QRS voltage now present T-wave abnormality no longer present Electronically Signed On 12-17-2018 9:08:13 PDT by Kam Fuentes CM:EKGRPT:ELECTROCARDIOGRAM REPORT [id number] BRADLEY FONTAINE MD EPIPHANY DRAFT REPORT BRADLEY FONTAINE MD
[~2018-12-16 23:51] MED LIST changes: +GABAPENTIN800 MG PO; +TRINTELLIX10 MG PO
[2018-12-17 00:33] LABS: BASO # 0.1 10*3/uL (0.0-0.1); BASO % 1.3 % (0.0-1.0); EOS # 0.3 10*3/uL (0.0-0.4); EOS % 3.5 % (1.0-4.0); HEMATOCRIT 44.3 % (37.0-47.0); HEMOGLOBIN 14.7 g/dl (12.0-16.0); LYMPH # 2.8 10*3/uL (1.3-4.4); LYMPH % 36.4 % (27.0-41.0); MEAN CELL VOLUME 103.3 fl (81.0-99.0); MEAN CORPUSCULAR HGB 34.3 pg (27.0-31.0); MEAN CORPUSCULAR HGB CONC 33.2 g/dl (33.0-37.0); MEAN PLATELET VOLUME 9.7 fl (9.6-12.3); MONO # 0.6 10*3/uL (0.1-1.0); NEUT # 3.9 10*3/uL (2.3-7.9); NEUT % 50.3 % (47.0-73.0); PLATELET COUNT AUTOMATED 383 10*3/uL (130-400); RED BLOOD COUNT 4.29 10*6/uL (4.10-5.10); RED CELL DISTRI WIDTH 15.8 % (0-14.5); WHITE BLOOD COUNT 7.7 10*3/uL (4.8-10.8)
[2018-12-17 00:49] LABS: ACT PARTIAL THROMBO TIME 27.2 SECONDS (20.0-32.1)
[2018-12-17 00:55] LABS: ALBUMIN 3.5 gm/dl (3.1-4.5); ALKALINE PHOSPHATASE 59 U/L (45-117); BUN 5 mg/dl (7-24); CHLORIDE 110 mmol/L (98-107); POTASSIUM 3.4 mmol/L (3.5-5.1); SGOT/AST 99 IU/L (3-35); SGPT/ALT 141 U/L (12-78); SODIUM 141 mmol/L (136-145); TOTAL PROTEIN 7.4 gm/dL (6.4-8.2)
[2018-12-17 00:56] LABS: TROPONIN I < 0.015 ng/ml (<0.045)
[2018-12-17 01:08] LABS: BILIRUBIN NEGATIVE (NEGATIVE); BLOOD TRACE-INTACT (NEGATIVE); CLARITY CLEAR (CLEAR); COLOR YELLOW (YELLOW); GLUCOSE NEGATIVE (NEGATIVE); KETONE NEGATIVE (NEGATIVE); LEUKO ESTERASE NEGATIVE (NEGATIVE); NITRITE NEGATIVE (NEGATIVE); SPECIFIC GRAVITY <= 1.005 (1.005-1.030); UROBILINOGEN 0.2 E.U./dl (0.2-1.0)
[2018-12-17 01:09] LABS: ACETAMINOPHEN (TYLENOL) < 5.0 ug/ml (10-30)
[2018-12-17 01:19] LABS: URINE AMPHETAMINES < 1000 (1000ng/ml); URINE BARBITURATES < 200 (200ng/ml); URINE BENZODIAZEPINES > 200 (200ng/ml); URINE CANNABINOIDS (THC) < 50 (50ng/ml); URINE COCAINE < 300 (300ng/ml); URINE METHADONE < 300 (300ng/ml); URINE OPIATES < 300 (300ng/ml)
[2018-12-17 01:22] LABS: URINE PHENCYCLIDINE < 25 (25ng/ml)
[2018-12-17 01:24] LABS: BACTERIA 2+
[2018-12-17 03:20] VITALS: BP 122/86
== END 2018-12-17 05:11 | disposition left against medical advice (07) ==
LOC: ED 23:51
PROVIDERS: Emergency Medicine Emergency Medical Services
DX: R56.9 Unspecified convulsions (principal); F17.210 Nicotine dependence, cigarettes, uncomplicated; Z88.6 Allergy status to analgesic agent; Z79.899 Other long term (current) drug therapy

== ENCOUNTER → 2019-06-05 | Outpatient (CLI) | payer OTHER ==
[2019-06-05 15:20] LABS: HEMATOCRIT 46.7 % (37.0-47.0); HEMOGLOBIN 14.9 g/dl (12.0-16.0); MEAN CELL VOLUME 94.7 fl (81.0-99.0); MEAN CORPUSCULAR HGB 30.2 pg (27.0-31.0); MEAN CORPUSCULAR HGB CONC 31.9 g/dl (33.0-37.0); MEAN PLATELET VOLUME 9.9 fl (9.6-12.3); RED BLOOD COUNT 4.93 10*6/uL (4.10-5.10); RED CELL DISTRI WIDTH 14.9 % (0-14.5); WHITE BLOOD COUNT 10.4 10*3/uL (4.8-10.8)
[2019-06-05 15:38] LABS: ALBUMIN 3.5 gm/dl (3.1-4.5); ALKALINE PHOSPHATASE 104 U/L (45-117); BUN 8 mg/dl (7-24); CHLORIDE 113 mmol/L (98-107); CHOLESTEROL 151 mg/dL (<200); CREATININE 0.69 mg/dL (0.55-1.02); HDL CHOLESTEROL 38 mg/dl (40-60); LDL CHOLESTEROL 85 mg/dL (9-159); POTASSIUM 3.6 mmol/L (3.5-5.1); SGOT/AST 25 IU/L (3-35); SGPT/ALT 39 U/L (12-78); SODIUM 143 mmol/L (136-145); TOTAL PROTEIN 7.1 gm/dL (6.4-8.2); TRIGLYCERIDES 141 mg/dl (<150); VLDL CHOLESTEROL 28 mg/dL (6-40)
== END | disposition home or self-care (01) ==
LOC: US 05-21 14:00 → LAB 13:33
PROVIDERS: Nurse Practitioner Family
DX: E04.9 Nontoxic goiter, unspecified (principal); E55.9 Vitamin D deficiency, unspecified; R63.4 Abnormal weight loss; R56.9 Unspecified convulsions; Z71.6 Tobacco abuse counseling

== ENCOUNTER 2020-01-07 18:02 | Inpatient (IN) | payer OTHER ==
[~2020-01-07] VITALS: Ht 167.6 cm; Wt 61.0 kg
[2020-01-07 18:02] VITALS: BP 106/69
[2020-01-07 18:38] LABS: BASO # 0.1 10*3/uL (0.0-0.1); EOS # 0.1 10*3/uL (0.0-0.4); EOS % 1.8 % (1.0-4.0); HEMATOCRIT 38.6 % (37.0-47.0); LYMPH # 1.6 10*3/uL (1.3-4.4); LYMPH % 22.9 % (27.0-41.0); MEAN CELL VOLUME 99.5 fl (81.0-99.0); MEAN CORPUSCULAR HGB CONC 34.2 g/dl (33.0-37.0); MONO # 0.4 10*3/uL (0.1-1.0); NEUT # 4.6 10*3/uL (2.3-7.9); NEUT % 67.9 % (47.0-73.0); PLATELET COUNT AUTOMATED 511 10*3/uL (130-400); RED BLOOD COUNT 3.88 10*6/uL (4.10-5.10); RED CELL DISTRI WIDTH 18.1 % (0-14.5); WHITE BLOOD COUNT 6.8 10*3/uL (4.8-10.8)
[2020-01-07 18:50] LABS: ACT PARTIAL THROMBO TIME 26.6 SECONDS (20.0-32.1)
[2020-01-07 18:56] LABS: ALBUMIN 3.7 gm/dl (3.1-4.5); ALKALINE PHOSPHATASE 58 U/L (45-117); BUN 10 mg/dl (7-24); CHLORIDE 111 mmol/L (98-107); CREATININE 0.55 mg/dL (0.55-1.02); LIPASE 148 U/L (73-393); POTASSIUM 2.9 mmol/L (3.5-5.1); SGOT/AST 51 IU/L (3-35); SGPT/ALT 27 U/L (12-78); SODIUM 144 mmol/L (136-145); TOTAL PROTEIN 7.5 gm/dL (6.4-8.2)
[2020-01-07 18:57] LABS: ACETAMINOPHEN (TYLENOL) < 5.0 ug/ml (10-30); BETA-HCG, QUANT < 1.0 mIU/mL (1-3); TROPONIN I < 0.015 ng/ml (<0.045); VALPROIC ACID (DEPAKENE) 33.1 ug/ml (50-100)
--- NOTE | 2020-01-07 19:00 | NUR ---
PATIENT SITTING UP IN BED ON PHONE. NO S/S OF DISTRESS NOTED/
--- NOTE | 2020-01-07 19:10 | NUR ---
PATIENT REFUSING EKG. DR SUSHILA PEDRO.
--- NOTE | 2020-01-07 19:24 | NUR ---
REPORT RECEIVED FROM ALMA JOSEPH. DR GANT IN SPEAKING WITH PT AT 1905,SHE WAS CURSING ABOUT BEING HERE AND SAYING SHE DIDN'T WANT TO BE HERE.SHE THEN TOOK OFF OUT OF THE ROOM,ATTEMPTING TO LEAVE AND SHE IS PINK SLIPPED. PT WAS GATHERED BY STAFF MEMBERS AND SECURITY AND PLACED INTO SECLUSION WHERE SHE WAS KICKING AT THE DOOR AND BANGING AT THE WINDOWS. DR GANT MADE AWARE. PTS OLD EMPTY MED BOTTLES AND HER CELL PHONE,PLACED IN BAG AND PLACED IN MED ROOM. PT IN VIEW OF [facility] STATION---BERONICA AGEE RN
--- NOTE | 2020-01-07 19:30 | NUR ---
geodon 20 MG IV WAS GIVEN TO PT DUE TO HER BEHAVIOR OF POUNDING ON THE WINDOW AND YELLING.SHE DID TAKE IT WILLINGLY--BERONICA AGEE RN
--- NOTE | 2020-01-07 19:47 | NUR ---
PT IN ROOM 11.PT MEDICATED PER EMAR.SECURITY AT BEDSIDE.PT PROVIDED BOXED LUNCH.
--- NOTE | 2020-01-07 20:20 | NUR ---
PT RESTING AFTER IM GEODON.IN VIEW OF [facility] STATION---BERONICA AGEE RN
--- NOTE | 2020-01-07 20:59 | NUR ---
PT MOVED FROM SECLUSION TO ROOM 4 SINCE SHE WILL BE AN ICU PT.PT PLACED ON PACKAGING DESIGN ENGINEER WHERE SHE IS NSR 70'S. IV PLACED IN PT. PT RESTING NOW,AND IS BEING MORE COOPERATIVE.SHE IS IN VIEW OF [facility] STATION.---BERONICA AGEE RN
[2020-01-07 21:30] VITALS: BP 116/83
--- NOTE | 2020-01-07 21:30 | NUR ---
A 39, admitted to ICCU, under the services of ALEJANDRA Colin DO with a diagnosis of DRUG OVERDOSE. Chief complaint is SUICIDAL IDEATION - DRUG OVERDOSE. Patient arrived via stretcher from ER. Monitor applied. Initial assessment completed. Vital signs taken and recorded. ALEJANDRA COLIN DO notified of admission to the unit. Orders received. See assessment for past medical history, medications and allergies. Patient and/or family oriented to unit. [facility]U visitation policy reviewed. Clothing/patient valuable form completed. ENRIQUE PRASAD
[2020-01-07] MEDS ORDERED: ATORVASTATIN CA80 M1 PO (21:38)
[2020-01-07] MEDS ORDERED: DIVALPROEX SOD250 MG PO (21:39)
[2020-01-07] MEDS ORDERED: TOPIRAMATE100 M2 PO (21:39)
[2020-01-07] MEDS ORDERED: BUSPAR15 MG PO (21:39)
[2020-01-07] MEDS ORDERED: MIRTAZAPINE15 M2 PO (21:39)
--- NOTE | 2020-01-07 21:44 | NUR ---
JW (ROXANA, JAKE) NOTIFIED OF CONSULT FOR DR. LU. ENRIQUE PRASAD RN
--- NOTE | 2020-01-07 21:45 | NUR ---
PT'S SISTER CALLED FROM ED LOBBY AND ASKED TO SPEAK TO DOCTOR. DR. PENALOZA NOTIFIED AND TALKED TO SISTER IN ED. ENRIQUE PRASAD RN
--- NOTE | 2020-01-07 22:00 | NUR ---
UNABLE TO VERIFY HOME MEDS WITH PATIENT PATIENT VERY DROWSY FROM MEDICATION GIVEN IN ER. ABLE TO VERIFY PARTIAL LIST THROUGH DRUG HISTORY. ENRIQUE PRASAD RN
--- NOTE | 2020-01-07 22:33 | NUR ---
PT. SWEARING AND YELLING AFTER ADMISSION TO FLOOR, CALM CURRENTLY AND SLEEPING. VS STABLE
--- NOTE | 2020-01-07 23:27 | NUR ---
DR. PENALOZA NOTIFIED OF POISON CONTROL SUGGESTIONS. POISON CONTROL NOTIFIED AT 2300 ORDERED. ENRIQEU PRASAD RN
[2020-01-08] VITALS: BP 99/70
[2020-01-08 00:13] LABS: CPK 125 U/L (26-192)
[2020-01-08 00:14] LABS: ACETAMINOPHEN (TYLENOL) < 5.0 ug/ml (10-30)
--- NOTE | 2020-01-08 00:21 | NUR ---
MORPHINE GIVEN AT 0018 ORDERED FOR COMPLAINTS OF PAIN/RESTLESSNESS. CURRENTLY SLEEPING, MORPHINE EFFECTIVE. ENRIQUE PRASAD RN
[2020-01-08 04:00] VITALS: BP 92/59
--- NOTE | 2020-01-08 07:25 | NUR ---
Shift chart check completed.24 HR chart check completed.
[2020-01-08 07:45] VITALS: BP 102/60
--- NOTE | 2020-01-08 07:53 | NUR ---
ON ASSESSMENT PATIENT AWAKE, ALERT AND ORIENTED. ON QUESTIONING SHE DENIES "EVER SAYING I WANTED TO ". WHEN QUESTIONED WHY SHE TOOK MORE PILLS THAN PRESCRIBED SHE SAID "I WAS SAD AND ANXIOUS AND THOSE MEDS ARE FOR THAT AND I WANTED TO FEEL BETTER". SHE'S ANXIOUS TO GO HOME. REINFORCED COOPERATION DUE TO "PINK SLIP". PROVIDED WARM BLANKET AND BREAKFAST ORDERED. NO SEIZURE ACTIVITY NOTED.
[2020-01-08 08:00] VITALS: BP 105/64
--- NOTE | 2020-01-08 08:44 | NUR ---
EATING BREAKFAST, COOPERATIVE. SPOKE VIA PHONE WITH HER SISTER.
[2020-01-08 09:05] LABS: URINE AMPHETAMINES < 1000 (1000ng/ml); URINE BARBITURATES < 200 (200ng/ml); URINE BENZODIAZEPINES < 200 (200ng/ml); URINE CANNABINOIDS (THC) > 50 (50ng/ml); URINE COCAINE < 300 (300ng/ml); URINE METHADONE < 300 (300ng/ml); URINE OPIATES < 300 (300ng/ml)
[2020-01-08 09:13] LABS: URINE PHENCYCLIDINE < 25 (25ng/ml)
[2020-01-08] MEDS ORDERED: LOW DOSE ASPIRI81 M1 PO (09:17)
[2020-01-08 09:19] LABS: BACTERIA 4+; BILIRUBIN NEGATIVE (NEGATIVE); BLOOD TRACE-INTACT (NEGATIVE); CLARITY SL CLOUDY (CLEAR); COLOR YELLOW (YELLOW); GLUCOSE NEGATIVE (NEGATIVE); KETONE NEGATIVE (NEGATIVE); LEUKO ESTERASE NEGATIVE (NEGATIVE); NITRITE POSITIVE (NEGATIVE); RBC 0-2 rbc/hpf (0-2); UROBILINOGEN < 0.2 E.U./dl (0.2-1.0)
--- NOTE | 2020-01-08 09:28 | NUR ---
MEDICATIONS REVIEWED/MED REC ADJUSTED WITH PATIENT, USING HER CLAIM HISTORY FOR ASSIST.
--- NOTE | 2020-01-08 10:28 | NUR ---
DR LU IN TO SEE PT. PATIENT TALKING WITH HER/TEARFUL. WE DID RETRIEVE A BAG FROM ER THAT CONTAINED TWO EMPTY MED BOTTLES AND HER CELL PHONE.
--- NOTE | 2020-01-08 11:14 | NUR ---
ATTEMPTED TO CALL AMITA LAMA TO NOTIFY HER OF PT'S ADMISSION PER POLICY. MESSAGE LEFT FOR HER TO CALL AT HER CONVENIENCE.
[2020-01-08 12:00] VITALS: BP 126/86
--- NOTE | 2020-01-08 12:01 | NUR ---
PT HAS REMOVED THE MONITOR, REFUSES TO REAPPLY. SHE HAS WALKED OVER TO CCU 7 TO TALK WITH OTHER PATIENT.
--- NOTE | 2020-01-08 12:12 | NUR ---
AMITA LAMA RETURNED CALL AND WILL SEE PATIENT TODAY.
--- NOTE | 2020-01-08 12:59 | NUR ---
ON MY RETURN FROM LUNCH STAFF RELAYED THAT PT HAS BEEN AGITATED AND ATTEMPTED TO LEAVE ICCU FROM BACK DOOR "I THOUGHT IT WAS THE BATHROOM". VERBALLY ABUSIVE TO THE STAFF. AMITA LAMA IS HERE TO SEE THE PATIENT AT THIS TIME.
--- NOTE | 2020-01-08 13:09 | NUR ---
AMITA LAMA TALKING WITH DR LEVINE ABOUT HER RECOMMENDATIONS.
--- NOTE | 2020-01-08 13:13 | NUR ---
psychiatric assessment: met with client, she is a&ox3, she is cooperative, anxious, no delusions voiced, denies sensory disturbance. she reports that she does drink everyday, she said that she does go to the [facility] and she sees dr benítez, she has a therapist for her alcohol use and she has a family independence case manager, she reports that she was drinking yesterday and she denies that she wanted to kill herself, she said that she took some pills because she wanted to be happy and she said that she wanted to get some attention from someone because she said that no one helps her and she falls when she does laundry. 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 she reports that she feels safe and she wants to go home. she reports that her daughter would come and get her. she is already active with outpatient services for mental health and substance abuse. based on her present presentation she is not a risk for suicide. she could be treated as an outpatient. discussed with her nurse and the doctor.
--- NOTE | 2020-01-08 13:14 | NUR ---
PT'S SISTER CALLS IN EXPRESSES WORRY THAT PATIENT WILL KILL HERSELF IF SHE'S DISCHARGED. DR LEVINE MADE AWARE. DR QUIÑONEZ IN TO SEE PT.
--- NOTE | 2020-01-08 13:27 | NUR ---
DR QUIÑONEZ HAS DISCHARGED PT AND PT SAYS "ONE OF HER KIDS" WILL COME TO GET HER. POTASSIUM SUPPLEMENT HAS BEEN GIVEN. SHE HAS ORDERED HER LUNCH.
--- NOTE | 2020-01-08 13:53 | NUR ---
PT'S HEP LOCK REMOVED. DISCHARGE INSTRUCTIONS REVIEWED WITH HER. SHE IS ATTEMPTING TO FIND SOME OF HER FAMILY TO COME GET HER AND HAS BEEN INSTRUCTED TO LET US KNOW WHEN THEY ARE OUTSIDE WAITING ON HER. HER LUNCH IS HERE.
--- NOTE | 2020-01-08 14:10 | NUR ---
PT PROVIDED WITH [facility] TELEPHONE NUMBER.
--- NOTE | 2020-01-08 14:34 | NUR ---
PT PACING ABOUT ICCU, AWAITING TAXI.
--- NOTE | 2020-01-08 14:58 | NUR ---
PT'S DAUGHTER CALLED. PT HAD MISPLACED HER BANK CARD. MULTIPLE GARBAGE CANS SEARCHED. BED LINENS SEARCHED. ULTIMATELY FOUND IN HER PANTS. PT ESCORTED, IN STABLE CONDITION TO ER LOBBY FOR DISCHARGE.
== END 2020-01-08 14:58 | disposition home or self-care (01) | DRG 817 ==
LOC: ED 18:02 → ICCU 19:25 → EDHOLD 19:25 → ICCU 20:58
PROVIDERS: Emergency Medicine; Student in an Organized Health Care Education/Training Program; ADMIT Internal Medicine
DX: T43.592A Poisoning by other antipsychotics and neuroleptics, intentional self-harm, initial encounter (principal); Z79.899 Other long term (current) drug therapy; T14.91XA Suicide attempt, initial encounter; D47.3 Essential (hemorrhagic) thrombocythemia; F10.929 Alcohol use, unspecified with intoxication, unspecified; E87.2 Acidosis; E87.6 Hypokalemia; R73.9 Hyperglycemia, unspecified; R74.0 Nonspecific elevation of levels of transaminase and lactic acid dehydrogenase [LDH]; F17.210 Nicotine dependence, cigarettes, uncomplicated; D68.0 Von Willebrand disease; G93.41 Metabolic encephalopathy; E87.8 Other disorders of electrolyte and fluid balance, not elsewhere classified; F41.9 Anxiety disorder, unspecified; F32.9 Major depressive disorder, single episode, unspecified; Z80.6 Family history of leukemia; Z82.49 Family history of ischemic heart disease and other diseases of the circulatory system; Z83.6 Family history of other diseases of the respiratory system; Y92.89 Other specified places as the place of occurrence of the external cause; Z79.1 Long term (current) use of non-steroidal anti-inflammatories (NSAID); T43.022A Poisoning by tetracyclic antidepressants, intentional self-harm, initial encounter

== ENCOUNTER 2020-08-23 16:26 | Inpatient (IN) | payer OTHER ==
[~2020-08-23] VITALS: Ht 167.6 cm; Wt 53.7 kg
[~2020-08-23 16:26] MED LIST changes: +ATORVASTATIN CA80 M1 PO; +BUSPAR15 MG PO; +DIVALPROEX SOD250 MG PO; +LOW DOSE ASPIRI81 M1 PO; +MIRTAZAPINE15 M2 PO; +TOPIRAMATE100 M2 PO
[2020-08-23 16:45] VITALS: BP 120/83
[2020-08-23 17:05] VITALS: BP 103/66
[2020-08-23 17:16] LABS: BASO % 0.4 % (0.0-1.0); EOS # 0.1 10*3/uL (0.0-0.4); EOS % 0.8 % (1.0-4.0); HEMATOCRIT 40.2 % (37.0-47.0); LYMPH # 2.1 10*3/uL (1.3-4.4); LYMPH % 27.7 % (27.0-41.0); MEAN CELL VOLUME 90.1 fl (81.0-99.0); MEAN CORPUSCULAR HGB 29.8 pg (27.0-31.0); MEAN CORPUSCULAR HGB CONC 33.1 g/dl (33.0-37.0); MEAN PLATELET VOLUME 9.4 fl (9.6-12.3); MONO # 0.7 10*3/uL (0.1-1.0); MONO % 8.8 % (3.0-9.0); NEUT # 4.6 10*3/uL (2.3-7.9); NEUT % 61.9 % (47.0-73.0); PLATELET COUNT AUTOMATED 508 10*3/uL (130-400); RED BLOOD COUNT 4.46 10*6/uL (4.10-5.10); RED CELL DISTRI WIDTH 14.8 % (0-14.5); WHITE BLOOD COUNT 7.4 10*3/uL (4.8-10.8)
[2020-08-23 17:32] LABS: ALBUMIN 3.4 gm/dl (3.1-4.5); ALKALINE PHOSPHATASE 58 U/L (45-117); BUN 8 mg/dl (7-24); CHLORIDE 102 mmol/L (98-107); CREATININE 0.78 mg/dL (0.55-1.02); POTASSIUM 3.2 mmol/L (3.5-5.1); SGOT/AST 18 IU/L (3-35); SGPT/ALT 21 U/L (12-78); SODIUM 137 mmol/L (136-145); TOTAL PROTEIN 7.7 gm/dL (6.4-8.2)
[2020-08-23 17:58] VITALS: BP 109/78
[2020-08-23 19:52] VITALS: BP 109/79
[2020-08-23] MEDS ORDERED: MIRTAZAPINE30 M2 PO (20:25)
[2020-08-23] MEDS ORDERED: BUSPIRONE15 MG PO (20:26)
[2020-08-24] VITALS: BP 104/63
[2020-08-24 06:21] LABS: BASO # 0.1 10*3/uL (0.0-0.1); BASO % 0.8 % (0.0-1.0); EOS # 0.2 10*3/uL (0.0-0.4); EOS % 2.1 % (1.0-4.0); HEMATOCRIT 37.9 % (37.0-47.0); LYMPH # 2.8 10*3/uL (1.3-4.4); LYMPH % 37.7 % (27.0-41.0); MEAN CELL VOLUME 91.3 fl (81.0-99.0); MEAN CORPUSCULAR HGB 29.2 pg (27.0-31.0); MEAN CORPUSCULAR HGB CONC 31.9 g/dl (33.0-37.0); MEAN PLATELET VOLUME 9.6 fl (9.6-12.3); MONO # 0.7 10*3/uL (0.1-1.0); MONO % 9.1 % (3.0-9.0); NEUT # 3.7 10*3/uL (2.3-7.9); NEUT % 49.9 % (47.0-73.0); PLATELET COUNT AUTOMATED 505 10*3/uL (130-400); RED BLOOD COUNT 4.15 10*6/uL (4.10-5.10); RED CELL DISTRI WIDTH 15.1 % (0-14.5); WHITE BLOOD COUNT 7.5 10*3/uL (4.8-10.8)
[2020-08-24 06:33] LABS: BUN 8 mg/dl (7-24); CHLORIDE 112 mmol/L (98-107); CREATININE 0.63 mg/dL (0.55-1.02); POTASSIUM 3.9 mmol/L (3.5-5.1); SODIUM 141 mmol/L (136-145)
[2020-08-24 08:00] VITALS: BP 93/54
[2020-08-24 08:12] LABS: URINE AMPHETAMINES > 1000 (1000ng/ml); URINE BARBITURATES < 200 (200ng/ml); URINE BENZODIAZEPINES < 200 (200ng/ml); URINE CANNABINOIDS (THC) < 50 (50ng/ml); URINE COCAINE < 300 (300ng/ml); URINE METHADONE < 300 (300ng/ml); URINE OPIATES < 300 (300ng/ml)
[2020-08-24 08:19] LABS: URINE PHENCYCLIDINE < 25 (25ng/ml)
[2020-08-24 12:00] VITALS: BP 113/61
[2020-08-24 16:00] VITALS: BP 126/78
[2020-08-24 20:00] VITALS: BP 95/83
[2020-08-24] MEDS ORDERED: DOXYCYCLINE HY100 M3 PO (20:40)
== END 2020-08-24 21:59 | disposition left against medical advice (07) | DRG 364 ==
LOC: ED 16:26 → 5E 18:23 → EDHOLD 18:23 → 5E 18:56
PROVIDERS: Internal Medicine; Student in an Organized Health Care Education/Training Program; ADMIT Internal Medicine; ATTEND Internal Medicine
PROC: 0J9N0ZZ Drainage of Right Lower Leg Subcutaneous Tissue and Fascia, Open Approach (ICD-10-PCS; principal; 2020-08-24)
PROC: 0J9H0ZZ Drainage of Left Lower Arm Subcutaneous Tissue and Fascia, Open Approach (ICD-10-PCS; 2020-08-24)
DX: L02.415 Cutaneous abscess of right lower limb (principal); L02.414 Cutaneous abscess of left upper limb; E87.6 Hypokalemia; E87.2 Acidosis; D47.3 Essential (hemorrhagic) thrombocythemia; D68.0 Von Willebrand disease; F32.9 Major depressive disorder, single episode, unspecified; R00.0 Tachycardia, unspecified; R73.9 Hyperglycemia, unspecified; F17.210 Nicotine dependence, cigarettes, uncomplicated; G40.909 Epilepsy, unspecified, not intractable, without status epilepticus; Z53.29 Procedure and treatment not carried out because of patient's decision for other reasons; E83.41 Hypermagnesemia; F41.9 Anxiety disorder, unspecified; Z88.8 Allergy status to other drugs, medicaments and biological substances; Z82.5 Family history of asthma and other chronic lower respiratory diseases; Z82.49 Family history of ischemic heart disease and other diseases of the circulatory system; Z80.6 Family history of leukemia; Z86.73 Personal history of transient ischemic attack (TIA), and cerebral infarction without residual deficits; Z79.82 Long term (current) use of aspirin

== ENCOUNTER 2020-10-26 20:54 | Emergency (ER) | payer OTHER ==
[~2020-10-26] VITALS: Ht 167.6 cm; Wt 54.4 kg
[~2020-10-26 20:54] MED LIST changes: +BUSPIRONE15 MG PO; +DOXYCYCLINE HY100 M3 PO; +MIRTAZAPINE30 M2 PO
[2020-10-26 21:00] VITALS: BP 100/57
[2020-10-26 21:17] LABS: HEMATOCRIT 32.4 % (37.0-47.0); MEAN CELL VOLUME 93.4 fl (81.0-99.0); MEAN CORPUSCULAR HGB CONC 32.1 g/dl (33.0-37.0); PLATELET COUNT AUTOMATED 673 10*3/uL (130-400); RED BLOOD COUNT 3.47 10*6/uL (4.10-5.10); RED CELL DISTRI WIDTH 15.2 % (0-14.5); WHITE BLOOD COUNT 6.3 10*3/uL (4.8-10.8)
[2020-10-26 21:33] LABS: ALBUMIN 2.9 gm/dl (3.1-4.5); ALKALINE PHOSPHATASE 58 U/L (45-117); BUN 9 mg/dl (7-24); CHLORIDE 112 mmol/L (98-107); CPK 33 U/L (26-192); CREATININE 0.61 mg/dL (0.55-1.02); POTASSIUM 3.2 mmol/L (3.5-5.1); SGOT/AST 26 IU/L (3-35); SGPT/ALT 54 U/L (12-78); SODIUM 143 mmol/L (136-145); TOTAL PROTEIN 6.9 gm/dL (6.4-8.2)
[2020-10-26 21:34] LABS: ACETAMINOPHEN (TYLENOL) < 5.0 ug/ml (10-30); ATYPICAL LYMPHS 4 % (0-0); BASOPHILS 1 % (0-1); BETA-HCG, QUANT < 1.0 mIU/mL (1-3); TOTAL CELLS COUNTED 100 #CELLS
[2020-10-26 21:34] LABS: BILIRUBIN Negative (Negative); BLOOD Negative (Negative); CLARITY Clear (Clear); COLOR Yellow (Yellow); GLUCOSE Negative (Negative); KETONE Negative (Negative); LEUKO ESTERASE Negative (Negative); NITRITE Negative (Negative); PH 5.5 (4.5-8.0); URINE AMPHETAMINES < 1000 (1000ng/ml); URINE BARBITURATES < 200 (200ng/ml); URINE BENZODIAZEPINES < 200 (200ng/ml); URINE CANNABINOIDS (THC) < 50 (50ng/ml); URINE COCAINE < 300 (300ng/ml); URINE METHADONE < 300 (300ng/ml); URINE OPIATES < 300 (300ng/ml); URINE PHENCYCLIDINE < 25 (25ng/ml)
[2020-10-26 21:35] LABS: PLATELET SUFFICIENCY HIGH (NORMAL)
[2020-10-26 21:42] LABS: BACTERIA TRACE; MUCOUS 1+; WBC 0-2 wbc/hpf (0-5)
== END 2020-10-26 23:48 | disposition home or self-care (01) ==
LOC: ED 20:54
PROVIDERS: Internal Medicine
DX: G40.909 Epilepsy, unspecified, not intractable, without status epilepticus (principal); F32.9 Major depressive disorder, single episode, unspecified; E88.09 Other disorders of plasma-protein metabolism, not elsewhere classified; E87.6 Hypokalemia; D64.9 Anemia, unspecified; D47.3 Essential (hemorrhagic) thrombocythemia; Z88.8 Allergy status to other drugs, medicaments and biological substances; Z79.899 Other long term (current) drug therapy; Z98.890 Other specified postprocedural states